=== PATIENT | male | born 1965 | race Caucasian/White ===

== ENCOUNTER → 2016-09-03 | Outpatient (CLI) | payer BC ==
--- NOTE | 2016-09-04 09:26 | DI ---
RIGHT OS CALCIS, 09/03/2016 3:15 PM: Clinical History: Right foot pain. Previous Exam: None at this facility. 2 views are submitted. There is no acute soft tissue, osseous, or joint abnormality. There is a bony spur at the attachment of the plantar fascia to the calcaneus. There is an exostosis on the anterior surface of the neck of the talus. There is enlargement of the posterior extension of the lateral tube rcle of the talus or "Stieda's process". There are some irregularly shaped bony densities along the l ateral aspect of the cuboid bone on the lateral projection. This can either represent prior injury to the cuboid bone or prior injury to a os peroneum. Readin. There is a prominent Stieda's process, and anterior exostosis involving the neck of the talus, an d a bony spur at the insertion of the plantar fascia on the calcaneus. 2. Bone densities along the lateral aspect of the cuboid bone either reflect prior trauma or these m ay represent previous injury to an os peroneum.
== END ==
LOC: RAD 15:25
PROVIDERS: ATTEND Physician Assistant
DX: M79.671 Pain in right foot (principal); M76.61 Achilles tendinitis, right leg
CPT/HCPCS: 73650